=== PATIENT | male | born 1980 | race Caucasian/White ===

== ENCOUNTER 2018-01-26 11:39 | Emergency (ER) | payer MEDICAID, SELFPAY ==
[2018-01-26 11:41] VITALS: BP 140/75; PULSE 72; RESP 17; TEMP 37; O2SAT 97; BMI 20.8
--- NOTE | 2018-01-26 12:04 | CT_ITS ---
STUDY: CT ABDOMEN AND PELVIS WITHOUT CONTRAST REASON FOR EXAM: Male, 37 years old. 6 month history of abdominal pain. RADIATION DOSAGE (If Supplied By Facility): CTDIvol = ( 6.69 ) mGy, DLP = ( 337.58 ) mGycm TECHNIQUE: Transaxial images were obtained from the dome of the diaphragm to the symphysis pubis without oral contrast, and without intravenous contrast. Sagittal and coronal images were reconstructed. Individualized dose optimization techniques were used for this CT. COMPARISON: None. FINDINGS: The visualized lung bases are unremarkable. The visualized portions of the heart are within normal limits. Normal liver. Normal gallbladder and extrahepatic biliary system. Normal spleen. Normal pancreas. Normal bilateral adrenal glands. Normal right kidney. Normal left kidney. There is marked distention of the stomach with the fluid and residual food particles. Normal small intestine. Moderate amount of fecal material is seen in the colon. The appendix is visualized and appears normal. Normal abdominal aorta. Normal inferior vena cava. Normal retroperitoneum. Normal urinary bladder. Metallic density is seen in the right hemipelvis. This may represent either a clip from prior surgery or possible BB. Clinical correlation is recommended. Normal abdominal wall. Normal osseous structures. CT/Abdomen/Pelvis without Cont IMPRESSION: Moderate amount of fecal material seen throughout the colon. Marked degree of gastric distention with fluid and residual food particles. Distal gastric obstruction should be ruled out. Electronically Signed: Omar Herrmann MD at 12:42 EST Tel [phone], Service support ,
[2018-01-26 12:32] LABS: Absolute Lymphocyte Count 2.62 X10^3/ul (0.83-4.51); Absolute Neutrophil Count 3.9 X10^3/uL (2.0-7.7); Basophil# 0.06 X10^3/uL; Basophil% 0.8 % (0-1); Eosinophil# 0.44 X10^3/uL; Eosinophils% 5.8 % (0-5); Hematocrit 43.9 % (40-54); Hemoglobin 14.8 g/dl (13.0-16.5); Lymphocyte # 2.62 X10^3/ul (4.0); Lymphocyte % 34.4 % (19-41); Mean Corp Hgb Conc 33.7 g/gl (32-36); Mean Corpuscular Hgb 31.8 pg (27.0-32.0); Mean Corpuscular Volume 94.4 fL (80-94); Mean Platelet Vol. 10.3 fl (6.2-12.0); Monocyte% 7.9 % (0-10); Neutrophil # 3.89 X10^3/uL (2.7-7.7); Platelet Count 229 K/mm3 (150-450); RBC Distribution Width CV 13.4 % (11.6-14.6); Red Blood Count 4.65 M/mm3 (4.6-6.2); White Blood Count 7.6 K/mm3 (4.4-11.0)
[2018-01-26 12:38] LABS: Anion Gap 6 (5-15); BUN 15 mg/dL (7-18); BUN/Creat Ratio 17.5 RATIO (10-20); Calcium,Total 8.6 mg/dL (8.5-10.1); Chloride 107 mmol/L (98-107); Creatinine, Serum 0.86 mg/dL (0.70-1.30); EST Glomerular Filtration Rate 107 mL/min (>60); Est Glom Filt Rate - Afr Amer 129 mL/min (>60); Estimated Creatinine Clearance 106.46 ml/min; Glucose 84 mg/dL (74-106); Potassium 3.6 mmol/L (3.5-5.1); Sodium Level 145 mmol/L (136-145)
[2018-01-26 12:41] LABS: POSITIVE COUNT NO; POSITIVE DIFFERENTIAL NO; POSITIVE MORPHOLOGY NO
--- NOTE | 2018-01-26 13:21 | ED.VISSUMM ---
- ER Visit Summary Date of Service: 01/26/18 Chief Complaint: [Abdominal pain] History of Present Illness: The patient is a 37 M [presents to the emergency department with abdominal pain that he has had for about 6 months off and on. Patient states that he has a good job that he wants to be able to keep however it requires lifting and he has been having a lot of discomfort in his lower abdomen with lifting and he is worried about a hernia. Patient states that he has these lumps in his groin that tend to get bigger and then smaller at times and at times are painful. Patient denies any fever or recent illness. He denies any concern for STDs. He has had no penile discharge. Patient states they recently moved to the area about 6 months ago from the [facility] and they have not established with a primary care physician in [facility]. Patient denies any fever or vomiting. He denies any diarrhea. He has been having normal bowel movements.] Physical Examination: [HEENT-PERRLA, EOMI. Cranial nerves II through XII grossly intact. TMs clear. Mucous membranes moist. No adenopathy. Cardiovascular-regular rate and rhythm without murmur or ectopy Lungs-clear to auscultation, chest wall stable without crepitus or subcu emphysema Abdomen-normoactive bowel sounds, soft, nontender, no rebound or rigidity, no peritoneal signs. Patient does have multiple palpable lymph nodes in right and left groin that are minimally tender. Lymph nodes are sub-1 cm in size and freely mobile. exam-normal circumcised male. No skin lesions noted. No drainage from the penis. Testicles are both descended and nontender on exam. No hernias palpated in the inguinal canals. Extremities-intact ?4, normal range of motion, normal pulses, atraumatic] Test Results: CBC with differential was normal. Chemistries were normal. CT flank showed large amount of food within the stomach and fecal stasis otherwise nothing significant.] Emergency Department Course and Treatment: Patient advised to limit lifting as I suspect symptoms likely secondary to abdominal wall strain. Will be referred to primary care physician application security architect for no doc for follow-up.] Treatment Plan: [Minimize lifting] Disposition: [Discharged home in stable condition. Patient advised to return if fever, vomiting, or condition should worsen in any way.] Impression: [Abdominal wall strain] This note was generated with Dragon dictation software. It may contain incorrect words, spelling, and punctuation that were not noted in review of the chart prior to signing ED Disposition - Plan for ED Patient: Chief Complaint: Abd Pain Referrals: Care Physician,No Primary [Primary Care Provider] -
--- NOTE | 2018-01-26 13:24 | ED.DCSUM_ITS ---
- ER Visit Summary Date of Service: 01/26/18 Chief Complaint: [Abdominal pain] History of Present Illness: The patient is a 37 M [presents to the emergency department with abdominal pain that he has had for about 6 months off and on. Patient states that he has a good job that he wants to be able to keep however it requires lifting and he has been having a lot of discomfort in his lower abdomen with lifting and he is worried about a hernia. Patient states that he has these lumps in his groin that tend to get bigger and then smaller at times and at times are painful. Patient denies any fever or recent illness. He denies any concern for STDs. He has had no penile discharge. Patient states they recently moved to the area about 6 months ago from the [facility] and they have not established with a primary care physician in [facility]. Patient denies any fever or vomiting. He denies any diarrhea. He has been having normal bowel movements.] Physical Examination: [HEENT-PERRLA, EOMI. Cranial nerves II through XII grossly intact. TMs clear. Mucous membranes moist. No adenopathy. Cardiovascular-regular rate and rhythm without murmur or ectopy Lungs-clear to auscultation, chest wall stable without crepitus or subcu emphysema Abdomen-normoactive bowel sounds, soft, nontender, no rebound or rigidity, no peritoneal signs. Patient does have multiple palpable lymph nodes in right and left groin that are minimally tender. Lymph nodes are sub-1 cm in size and freely mobile. exam-normal circumcised male. No skin lesions noted. No drainage from the penis. Testicles are both descended and nontender on exam. No hernias palpated in the inguinal canals. Extremities-intact ?4, normal range of motion, normal pulses, atraumatic] Test Results: CBC with differential was normal. Chemistries were normal. CT flank showed large amount of food within the stomach and fecal stasis otherwise nothing significant.] Emergency Department Course and Treatment: Patient advised to limit lifting as I suspect symptoms likely secondary to abdominal wall strain. Will be referred to primary care physician national business director for no doc for follow-up.] Treatment Plan: [Minimize lifting] Disposition: [Discharged home in stable condition. Patient advised to return if fever, vomiting, or condition should worsen in any way.] Impression: [Abdominal wall strain] This note was generated with Dragon dictation software. It may contain incorrect words, spelling, and punctuation that were not noted in review of the chart prior to signing ED Disposition - Plan for ED Patient: Chief Complaint: Abd Pain Referrals: Care Physician,No Primary [Primary Care Provider] -
--- NOTE | 2018-01-26 13:25 | ED.DEP ---
ED Disposition - Plan for ED Patient: Chief Complaint: Abd Pain Instructions: ED Strain Abdominal Muscle Referrals: Care Physician,No Primary [Primary Care Provider] - Vaibhav Reich MD [STAFF PHYSICIAN] - 5-7 Days
== END 2018-01-26 13:38 | disposition home or self-care (01) ==
PROVIDERS: Emergency Provider Emergency Medicine
DX: S39.011A Strain of muscle, fascia and tendon of abdomen, initial encounter (principal); R59.0 Localized enlarged lymph nodes; X58.XXXA Exposure to other specified factors, initial encounter; Y93.9 Activity, unspecified; Y92.9 Unspecified place or not applicable; F12.90 Cannabis use, unspecified, uncomplicated; Z72.0 Tobacco use
CPT/HCPCS: 74176; 80048; 85025; 99283; A4216